=== PATIENT | female | born 2005 | race Two or more races ===

== ENCOUNTER 2024-02-04 13:17 | Emergency (ER) | payer OTHER ==
[~2024-02-04] VITALS: Ht 167.6 cm; Wt 48.1 kg
[2024-02-04 14:20] LABS: Basophils # (auto) 0 10 ^3/uL (0-0.2); Basophils % (auto) 0.5 % (0.0-2.0); Eosinophils # (auto) 0 10 ^3/uL (0-0.8); Eosinophils % (auto) 0.2 % (0.0-7.0); Hematocrit 40.7 % (36.0-46.0); Hemoglobin 13.7 g/dL (12.2-16.2); Lymphocytes # (auto) 1.2 10 ^3/uL (0.4-5.4); Lymphocytes % (auto) 11.9 % (10.0-50.0); Mean Corpuscular Hemoglobin 32.9 pg (28.0-32.0); Mean Corpuscular Hgb Conc. 33.7 g/dL (32.0-36.0); Mean Corpuscular Volume 97.6 fL (80.0-100.0); Monocytes # (auto) 0.6 10 ^3/uL (0-1.3); Monocytes % (auto) 5.8 % (0.0-12.0); Neutrophils # (auto) 8.1 10 ^3/uL (1.6-8.6); Neutrophils % (auto) 81.6 % (37.0-80.0); Red Blood Cells 4.17 10^6/uL (4.0-5.20)
[2024-02-04 14:31] LABS: Chloride 103 mmol/L (98-107); Potassium 4.8 mmol/L (3.5-5.1); Sodium 138 mmol/L (136-145)
[2024-02-04 14:32] LABS: Anion Gap 7 (5-15); Carbon Dioxide 28 mmol/L (20-30)
[2024-02-04 14:33] LABS: Calcium 10.3 mg/dL (8.7-10.4)
[2024-02-04 14:37] LABS: Glucose 100 mg/dL (74-106)
[2024-02-04 14:38] LABS: BUN/Creatinine Ratio 16.9 (10.0-20.0); Blood Urea Nitrogen 12 mg/dL (9-23)
[2024-02-04 16:37] VITALS: BP 120/71; PULSE 71; RESP 18; O2SAT 100
== END 2024-02-04 16:38 | disposition home or self-care (01) ==
LOC: ER 13:17
DX: B34.9 Viral infection, unspecified (principal); F15.90 Other stimulant use, unspecified, uncomplicated
CPT/HCPCS: 36415; 80048; 85025